=== PATIENT | male | born 1975 | race Caucasian/White ===

== ENCOUNTER 2023-06-19 19:49 | Emergency (ER) | payer BC, SELFPAY ==
[2023-06-19 19:53] VITALS: BP 107/74; PULSE 118; RESP 16; TEMP 36.4; O2SAT 96; BMI 41.8
--- NOTE | 2023-06-19 20:18 | W.ED.ALLEREA ---
HPI - Allergic Reaction General: Chief complaint: Allergic Reaction Stated complaint: Alergic reation Time Seen by Provider: 06/19/23 19:59 Source: patient Mode of arrival: ambulatory Limitations: no limitations History of Present Illness: HPI narrative: 47-year-old male states that he just started taking a journal and what caused him to have vomiting diarrhea so he took a Zofran states sleeping roughly 2 hours ago he started breaking out a full body rash is very pruritic in nature he does have a rash to his arms and trunk he denies any shortness of breath he denies any fever pain denies throat swelling Associated symptoms: Reports nausea and vomiting; Deny abdominal pain Review of Systems Const: Denies: fever(s), chills, body aches or change in appetite ENMT: Denies: throat pain or dental pain Card: Denies: chest pain Resp: Denies: dyspnea GI: Reports: nausea, vomiting and diarrhea; Denies: abdominal pain Musc: Denies: neck pain or back pain Skin/Breast: Reports: rash and pruritus Neuro: Denies: headache(s) Physical Exam Const: COMMON NORMALS: no acute distress, patient oriented x3 and healthy appearing HENMT: COMMON NORMALS: normocephalic and atraumatic HEAD & SCALP: normocephalic and atraumatic Neck/C-Spine: COMMON NORMALS: full ROM and supple Chest: COMMONS NORMALS: normal inspection of the chest Resp: COMMON NORMALS: normal respiratory effort Cardio: COMMON NORMALS: regular rate, regular rhythm and No murmurs present (Cardio) RATE: regular rate RHYTHM: regular rhythm Extremity: COMMON NORMALS: normal to inspection and full ROM Neuro: COMMON NORMALS: patient oriented x3, moves all extremities and no focal motor deficits Psych: COMMON NORMALS: mental status grossly normal, Normal thought process present and cooperative THOUGHT PROCESS: Normal thought process present Skin: NARRATIVE SKIN EXAM: Macular rash to trunk and arms and legs Course Vital Signs: Vital signs: Vital Signs Temperature 97.5 F L 06/19/23 19:53 Pulse Rate 114 H 06/19/23 20:48 Respiratory Rate 16 06/19/23 19:53 Blood Pressure 138/88 06/19/23 20:48 Pulse Oximetry 92 06/19/23 20:48 Oxygen Delivery Me thod Room Air 06/19/23 20:48 MDM - Allergic Reaction Medical Decision Making Patient presents here with allergic reaction he is much improved rash and is resolved after Benadryl Pepcid had some vomiting likely from [facility] his abdominal exam here is benign he has no pain glucose here is at his baseline no signs of DKA inform he needs to speak to his physician about his mid Giorno will prescribe Phenergan he is to return if worsening. Medical Records I reviewed the patient's medical records. Lab Data I reviewed the patient's lab results. Laboratory Results POC Glucose 281 mg/dL (70-110) H 06/19/23 21:02 No radiology studies performed this visit Discharge Plan Discharge Patient Disposition: Home Clinical Impression: Allergic reaction, Vomiting Condition: Stable Prescriptions: New promethazine 25 mg tablet 25 mg PO TID PRN (Reason: nausea and vomiting) Qty: 14 0RF No Action metformin 500 mg tablet extended release 24 hr 1,000 mg PO BID lisinopril 40 mg tablet 40 mg PO DAILY Humulin N NPH Insulin KwikPen 100 unit/mL (3 mL) insulin pen 70 unit SUBCUT BID Ozempic 0.25 mg or 0.5 mg(2 mg/1.5 mL) pen injector See Rx Instructions .ROUTE .COMPLEX Qty: 1.5 11RF Rx Instructions: take 0.25mg once weekly for 4 weeks, then 0.5mg once weekly; Discharge Orders: Discharge ED (Routine); Ordered 06/19/23 Ordered By: Tavares Pa Discharge Diet: Advance as tolerated Discharge Activity: Resume usual activity Patient Instructions: General Allergic Reaction (ED) Coding Level of Care Code ED [employer] for Ifeoma Acosta
[2023-06-19] MEDS: methylPREDNISolone sod succ 125 mg/2 mL INJ IVP (20:35)
[2023-06-19] MEDS: famotidine 20 mg/2 mL INJ 40 MG IVP (20:36)
[2023-06-19] MEDS: diphenhydrAMINE 50 mg/mL SDV 1mL IVP (20:39)
[2023-06-19 20:48] VITALS: BP 138/88; PULSE 114; O2SAT 92
[2023-06-19] MEDS: promethazine 25 mg/mL SDV 1 mL IM (21:03)
[2023-06-19] MEDS: sodium chloride 0.9% 1,000 ML 999 ML IV (21:06)
[2023-06-19 21:26] LABS: Glucose Point of Care 281 mg/dL (70-110)
[2023-06-19 22:22] VITALS: BP 119/85; PULSE 110; RESP 16; O2SAT 92
== END 2023-06-19 22:24 | disposition home or self-care (01) ==
PROVIDERS: Emergency Provider Emergency Medicine
DX: T78.40XA Allergy, unspecified, initial encounter (principal); R11.11 Vomiting without nausea; Z79.84 Long term (current) use of oral hypoglycemic drugs; Z79.4 Long term (current) use of insulin; Z79.85 Long-term (current) use of injectable non-insulin antidiabetic drugs; X58.XXXA Exposure to other specified factors, initial encounter
CPT/HCPCS: 36416; 82962; 96361; 96372; 96374; 96375; 99284; J1200; J2550; J2930; J3490; J7030